=== PATIENT | female | born 1985 | race Caucasian/White ===

== ENCOUNTER 2018-11-24 05:13 | Inpatient (IN) | payer OTHER ==
[~2018-11-24] VITALS: Ht 170.2 cm; Wt 77.3 kg
[~2018-11-24 05:13] MED LIST: PNV1CAPS17 PO
[2018-11-24 05:15] VITALS: Ht 170.2 cm; Wt 77.3 kg
[2018-11-24] MEDS ORDERED: METHYLERGONOVINE 0.2 MG INJ IM PRN ×2 (05:30→06:30)
[2018-11-24] MEDS ORDERED: OXYTOCIN 30 UNITS/LR 500 ML IV PRN ×2 (05:30→06:30)
[2018-11-24] MEDS ORDERED: IBUPROFEN 600 MG TAB PO PRN ×2 (05:30→06:30)
[2018-11-24] MEDS ORDERED: OXYTOCIN 30 UNITS/LR 500 ML IV SCH ×3 (05:30→06:16)
[2018-11-24] MEDS ORDERED: CARBOPROST 250 MCG INJ IM PRN ×2 (05:30→06:30)
[2018-11-24] MEDS ORDERED: LIDOCAINE 1% (MPF) 30 ML INJ INJ PRN (05:30)
[2018-11-24] MEDS ORDERED: MISOPROSTOL 200 MCG TAB PR PRN ×2 (05:30→06:30)
--- NOTE | 2018-11-24 05:39 | HP ---
Date/Time of Note Date/Time of Note DATE: 11/24/18 TIME: 05:34 OB - History Hx of Present Free Text/Dictation Patient is a 33-year-old 5 para 4 at 41 weeks and 5 days of gestation with estimated date of delivery November 12, 2018 Patient presents to labor and delivery with the paramedics directly from the ER reporting that patient was in the process of delivering the baby in the elevator Patient has had good care GBS status is negative Estimated Due Date: Nov 12, 2018 : 5 Para: 4 Care: Good Care Obstetrical Complications: None Medical Complications: None Past Family/Social History * Past Medical, Surgical, Family and Obstetric Histories reviewed from chart. Blood Type: A+ OB Admission Exam Physical Exam HEENT: WNL Heart: Rhythm Normal Lungs: Clear, Equal Abdomen: WNL Extremities: Normal Reflexes: Normal Cervical Dilatation: 10cm (Baby at the perineum in the elevator) Intensity: Moderate OB Assessment/Plan Reason for admission: active labor Plan: Expectant Management Other plan: Admit to labor and delivery Normal spontaneous delivery in the elevator Copies To: CC: CHRISTIAN RAMIREZ MD ; REMEDIOS MYERS MD Nov 24, 2018 05:39
[2018-11-24] MEDS ORDERED: LACTATED RINGER'S 1,000 ML IV* SCH (06:16)
--- NOTE | 2018-11-24 06:16 | LDN ---
Date/Time of Note Date/Time of Note DATE: 11/24/18 TIME: 06:11 Delivery Summary Post-dates/ Post-term Patient presents with the fetus at the perineum in the elevator Placenta Delivered: Spontaneously Episiotomy: No Laceration repair: First-degree laceration repaired with 3-0 chromic Anesthesia type: Local Estimated blood loss: 200 Sponge & Needle done & correct: Yes All needle counts correct: Yes Any foreign bodies felt in the: No Delivery Information Sex Sex: male Apgars 1 Minute: 8 5 Minute: 9 Suctioning Nose & mouth suctioned at carl: Yes Umbilical Cord Umbilical cord with: 3 Vessels Cord presentations: no nuchal cord Cord Blood was obtained: Yes Mother & Baby Disposition Disposition Baby's weight 9 pounds 7 ounces/ 4280 gr Baby to NICU: No Copies To: CC: CHRISTIAN RAMIREZ MD ; REMEDIOS MYERS MD Nov 24, 2018 06:16
[2018-11-24] MEDS ORDERED: BENZOCAINE 20% 56 ML SPRAY TOP PRN (06:30)
[2018-11-24] MEDS ORDERED: SENNA/DOCUSATE NA (8.6MG/50MG) TAB PO PRN (06:30)
[2018-11-24] MEDS ORDERED: LANOLIN HPA 1 PKT TOP PRN (06:30)
[2018-11-24] MEDS ORDERED: ONDANSETRON 4 MG INJ IV PRN (06:30)
[2018-11-24] MEDS ORDERED: WITCH HAZEL/GLYCERIN PAD PR PRN (06:30)
[2018-11-24] MEDS ORDERED: DIBUCAINE 1% 30 GM OINT TOP PRN (06:30)
[2018-11-24] MEDS ORDERED: ACETAMINOPHEN 325 MG TAB PO PRN ×2 (06:30)
[2018-11-24] MEDS ORDERED: MAGNESIUM HYDROXIDE 30ML CUP PO PRN (06:30)
[2018-11-24 10:30] VITALS: BP 110/62; PULSE 61; RESP 18
[2018-11-24 12:23] VITALS: BP 113/66; PULSE 57; RESP 18
--- NOTE | 2018-11-24 12:32 | DS ---
Date/Time of Note Date/Time of Note DATE: 11/24/18 TIME: 12:31 Obstetrical Discharge Record Final Diagnosis Final Diagnosis: Term delivered Vaginal Delivery Obstetrical Delivery: Spontaneous Complications Augmentation: No Induction: No Rupture of Membranes: No Condition on Discharge Physical Assessment Voiding: Yes Bowel Movement: Yes Breast: Soft, non-tender, Filling Fundus: Firm Abdomen and Incision: soft, not tender Calf Tenderness: No Patient Condition: Good CHRISTIAN RAMIREZ MD Nov 24, 2018 12:32
[2018-11-24 15:58] VITALS: BP 108/65; PULSE 106; PULSE 60; RESP 18
[2018-11-24 19:50] VITALS: BP 119/72; PULSE 60
[2018-11-25 04:25] VITALS: BP 110/74; PULSE 64; PULSE 94
[2018-11-25 08:00] VITALS: BP 108/69; PULSE 65
--- NOTE | 2018-11-25 14:02 | DS ---
Date/Time of Note Date/Time of Note DATE: 11/25/18 TIME: 14:01 Obstetrical Discharge Record Final Diagnosis Final Diagnosis: Term delivered Vaginal Delivery Obstetrical Delivery: Spontaneous Complications Augmentation: No Induction: No Rupture of Membranes: No Condition on Discharge Physical Assessment Voiding: Yes Bowel Movement: Yes Breast: Soft, non-tender, Filling Fundus: Firm Abdomen and Incision: soft, not tender Calf Tenderness: No Patient Condition: Good CHRISTIAN RAMIREZ MD Nov 25, 2018 14:02
== END 2018-11-25 14:45 | disposition home or self-care (01) | DRG 807 ==
LOC: L-D 05:13 → PP1 06:11 → L-D 06:26 → PP1 08:32
PROVIDERS: ADMIT Specialist; ATTEND Specialist
PROC: 10E0XZZ Delivery of Products of Conception, External Approach (ICD-10-PCS; principal; 2018-11-24)
PROC: 0HQ9XZZ Repair Perineum Skin, External Approach (ICD-10-PCS; 2018-11-24)
DX: O48.0 Post-term pregnancy (principal); Z37.0 Single live birth; O70.0 First degree perineal laceration during delivery; Z3A.41 41 weeks gestation of pregnancy
CPT/HCPCS: 59414; 85025; 85610; 85730; 86592; 86703; 86803; 86850; 86900; 86901; 87340; 88307; 99464; J2590; J7120